=== PATIENT | male | born 1940 | race Asian ===

== ENCOUNTER 2016-06-22 17:06 | Emergency (ER) | payer OTHER ==
[~2016-06-22] VITALS: Ht 157.5 cm; Wt 56.0 kg
[~2016-06-22 17:06] MED LIST: ALLO100T PO; AMLO-218 PO; ASPI-664 PO; ATOR20TA38 PO; CHOL100062 PO; COLC0.6T6 PO; DONE5TAB32 PO; DUTA0.5C PO; GLIP-95 PO; LEVO100T87 PO; LOSA50TA6 PO; NIT4 SL; PANT20TA2 PO; TAMS-14 PO; TEMA15CA6 PO
[2016-06-22 17:13] VITALS: Ht 157.5 cm; Wt 56.0 kg
[2016-06-22] MEDS ORDERED: HYDROCODONE/APAP (5/325) TAB PO ONE (18:00)
--- NOTE | 2016-06-22 18:24 | RADRPT ---
PROCEDURE: XR Left Shoulder. CLINICAL INDICATION: Trauma. Left shoulder pain. TECHNIQUE: Two views. Frontal internal rotation and frontal external rotation. COMPARISON: No prior study is available for comparison. FINDINGS: There is no fracture. There is inferior subluxation of the glenohumeral joint. The acromioclavicul ar joint is normal. The soft tissues are normal. Articular surfaces are intact. There is no lytic or blastic lesion. There is no radiopaque foreign body. IMPRESSION: 1. Inferior subluxation of the glenohumeral joint. Correlation with MRI should be considered. 2. No fracture or dislocation. RPTAT: QQ .Misha Castro MD, Date Time Electronically viewed and signed by .Misha Castro MD, on 06/22/2016 18:24 .R/
--- NOTE | 2016-06-22 18:41 | ERD ---
ER Documentation Chief Complaint Date/Time DATE: 06/22/16 TIME: 18:41 Chief Complaint left shoulder dislocation , hapenned 3 days ago, on coumadin HPI 75-year-old male, [id number], with history of diabetes, hypertension, chronic renal insufficiency, prostate cancer, CVA, DC and coronary artery disease status post CABG in 2016 ambulatory to the ED complaining of a 3 day history of sharp and achy, nonradiating left shoulder pain exacerbated by movement. No relieving factors. 3 days ago he was using a spring-loaded pole whizzer hand when he felt acute pain in his left shoulder. No elbow or wrist pain. No weakness, numbness or paresthesias. Was seen in the clinic today where radiographs apparently revealed a dislocation and he was referred to the ED for further evaluation. Otherwise asymptomatic. Denies chest pain or palpitations. No shortness of breath or cough. No abdominal pain or back pain. No nausea vomiting. No fevers or chills. ROS All systems reviewed and are negative except as per history of present illness. Medications Home Meds Active Scripts Tramadol HCl (Tramadol HCl) 50 Mg Tablet, 50 MG PO Q6 Y for PAIN, #10 TAB Prov:JOAQUIM DALE MD 06/22/16 Hydrocodone/Acetaminophen ([place] 5-325 Tablet) 1 Each Tablet, 1 TAB PO Q6H Y for PAIN, #7 TAB Prov:JOAQUIM DALE MD 06/22/16 Reported Medications Nitroglycerin* (Nitrostat*) 0.4 Mg Tab.subl, 0.4 MG SL Q5MIN Y for CHEST PAIN, BOTTLE 05/26/15 Colchicine* (Colcrys*) 0.6 Mg Tablet, 0.6 MG PO DAILY Y for MUSCLE SPASMS, TAB 05/26/15 Temazepam* (Restoril*) 15 Mg Capsule, 15 MG PO HS Y for INSOMNIA, CAP 05/26/15 Atorvastatin Calcium* (Atorvastatin Calcium*) 20 Mg Tablet, 20 MG PO QHS, #30 TAB 05/26/15 Levothyroxine Sodium* (Levothyroxine Sodium*) 100 Mcg Tablet, 100 MCG PO BEFORE BREAKFAST, #30 TAB 05/26/15 Cholecalciferol* (Vitamin D3*) 1,000 Unit Tablet, 1000 UNIT PO DAILY, TAB 05/26/15 Pantoprazole* (Protonix*) 20 Mg Tablet.dr, 20 MG PO DAILY, TAB 05/26/15 Aspirin* (Aspirin* EC) 81 Mg Tablet.dr, 81 MG PO DAILY, TAB 05/26/15 Dutasteride* (Avodart*) 0.5 Mg Capsule, 0.5 MG PO DAILY, CAP 05/26/15 Donepezil* (Aricept*) 5 Mg Tablet, 5 MG PO DAILY, TAB 05/26/15 Glipizide* (Glipizide*) 10 Mg Tablet, 10 MG PO AC BREAKFAST DINNER, TAB 05/26/15 Tamsulosin Hcl* (Flomax*) 0.4 Mg Cap.er.24h, 0.4 MG PO DAILY, CAP 05/26/15 Allopurinol* (Allopurinol*) 100 Mg Tablet, 100 MG PO BID, TAB 05/26/15 Amlodipine Besylate* (Norvasc*) 10 Mg Tablet, 10 MG PO DAILY, TAB 05/26/15 Losartan Potassium* (Losartan Potassium*) 50 Mg Tablet, 50 MG PO DAILY, TAB 05/26/15 Allergies Allergies: Coded Allergies: No Known Allergy (Unverified , 05/26/15) PMhx/Soc Reviewed in chart. As per HPI. History of Surgery: Yes (GOITER SX) Anesthesia Reaction: No Hx Neurological Disorder: No Hx Respiratory Disorders: No Hx Cardiac Disorders: Yes (HTN, CABG-5V) Hx Psychiatric Problems: No Hx Miscellaneous Medical Probl: Yes (dm) Hx Alcohol Use: Yes (socially) Hx Substance Use: No Hx Tobacco Use: Yes (QUIT 30 YEARS) Smoking Status: Former smoker FmHx Not relevant to presenting complaint Physical Exam Vitals Vital Signs Date Time Temp Pulse Resp B/P Pulse Ox O2 Delivery O2 Flow Rate FiO2 06/22/16 21:10 69 17 150/79 100 Room Air 06/22/16 18:36 85 17 155/88 100 Room Air 06/22/16 17:13 98.1 81 20 175/81 99 Physical Exam Const: Alert, mild distress due to pain. Head: Atraumatic Eyes: Normal Conjunctiva ENT: Normal External Ears, Nose and Mouth. Neck: Full range of motion. Nontender Resp: Clear to auscultation bilaterally Cardio: Regular rate and rhythm, no murmurs. Status post median sternotomy. Abd: Soft, non tender, non distended. Normal bowel sounds Skin: No petechiae or rashes Back: No midline or flank tenderness Ext: Left upper extremity: Swelling and tenderness of the glenohumeral area but no gross deformity. Range of motion is severely limited due to pain. No elbow or wrist swelling or tenderness. Normal sensation over the axillary nerve distribution. Distal neurovascular intact. Neur: Awake and alert Psych: Normal Mood and Affect Results 24 hrs Current Medications Medications (Trade) Dose Ordered Sig/Сергей Route PRN Reason Start Time Stop Time Status Last Admin Dose Admin Acetaminophen/ Hydrocodone Bitart ([place] (5/325)) 1 tab ONCE ONCE PO 06/22/16 18:00 06/22/16 18:01 DC 06/22/16 17:44 Morphine Sulfate (morphine) 4 mg ONCE STAT IV 06/22/16 18:44 06/22/16 18:46 DC 06/22/16 18:50 Ondansetron HCl (Zofran Inj) 4 mg ONCE STAT IV 06/22/16 18:44 06/22/16 18:46 DC 06/22/16 18:50 PROCEDURE: XR Left Shoulder. CLINICAL INDICATION: Trauma. Left shoulder pain. TECHNIQUE: Two views. Frontal internal rotation and frontal external rotation. COMPARISON: No prior study is available for comparison. FINDINGS: There is no fracture. There is inferior subluxation of the glenohumeral joint. The acromioclavicular joint is normal. The soft tissues are normal. Articular surfaces are intact. There is no lytic or blastic lesion. There is no radiopaque foreign body. IMPRESSION: 1. Inferior subluxation of the glenohumeral joint. Correlation with MRI should be considered. 2. No fracture or dislocation. RPTAT: QQ .Misha Castro MD, MD Date Time Electronically viewed and signed by .Misha Castro MD, on 06/22/2016 18:24 .R/ PROCEDURE: CT shoulder left CLINICAL INDICATION: Left inferior subluxation dislocation. TECHNIQUE: A CT of the left shoulder was performed without intravenous contrast. Coronal and sagittal reformats were generated. CTDIvol: 15.64 mGy. DLP: 361.54 mGy-cm. COMPARISON: Left shoulder x-rays dated 06/22/2016 FINDINGS: The left humeral head is subluxed inferiorly with widening of the superior glenohumeral joint space. There is mild degenerative arthrosis of the glenohumeral joint. Additional mild rotator cuff related degenerative changes are noted along the humeral head. No fracture is identified. Bone mineralization is normal and there is no suspicious osseous lesion. The visualized left lung is clear. IMPRESSION: 1. Inferior subluxation of the left humeral head with widening of the superior glenohumeral joint space, nonspecific. This could be further evaluated with MRI if clinically warranted. 2. No fracture. 3. Mild degenerative changes. RPTAT: HTAR .Deep Arvizu MD, MD Date Time Electronically viewed and signed by .Deep Arvizu MD, MD on 06/22/2016 19:51 .R/ Procedures/MDM DOCUMENTS REVIEWED: ED nurse prior ED, prior records [employer]ISION [employer]KIN-year-old male, [id number], with history of diabetes, hypertension, chronic renal insufficiency, prostate cancer, CVA, DC and coronary artery disease status post CABG in 2016 ambulatory to the ED complaining of a 3 day history of sharp and achy, nonradiating left shoulder pain. Radiographs and CT scan reveal subluxation without significant dislocation. Patient will need an MRI to further evaluate this process. It is ongoing for 3 days there is no indication for emergent intervention. Arm immobilized. He will be referred to his primary care physician tomorrow for urgent MRI and orthopedic referral. Counseled patient regarding diagnostic workup, diagnosis and need for followup. Understands to return to ED if symptoms recur, worsen or any other concerns. Departure Diagnosis: Primary Impression: Left shoulder pain Chronicity: acute Qualified Code: M25.512 - Acute pain of left shoulder Additional Impressions: Subluxation of left shoulder joint Encounter type: initial encounter Qualified Code: S43.002A - Subluxation of left shoulder joint, initial encounter History of coronary artery bypass graft Diabetes mellitus type 2 in nonobese Hypertension Hypertension type: essential hypertension Qualified Code: I10 - Essential hypertension Condition: Stable JOAQUIM DALE MD Jun 22, 2016 18:41
[2016-06-22] MEDS ORDERED: morphine 4 MG/ML VIAL IV STA (18:44)
[2016-06-22] MEDS ORDERED: ONDANSETRON 4 MG INJ IV STA (18:44)
--- NOTE | 2016-06-22 19:52 | RADRPT ---
PROCEDURE: CT shoulder left CLINICAL INDICATION: Left inferior subluxation dislocation. TECHNIQUE: A CT of the left shoulder was performed without intravenous contrast. Coronal and sagit mirza reformats were generated. CTDIvol: 15.64 mGy. DLP: 361.54 mGy-cm. COMPARISON: Left shoulder x-rays dated 06/22/2016 FINDINGS: The left humeral head is subluxed inferiorly with widening of the superior glenohumeral joint space. There is mild degenerative arthrosis of the glenohumeral joint. Additional mild rotator cuff relate d degenerative changes are noted along the humeral head. No fracture is identified. Bone mineraliza tion is normal and there is no suspicious osseous lesion. The visualized left lung is clear. IMPRESSION: 1. Inferior subluxation of the left humeral head with widening of the superior glenohumeral joint sp anthony, nonspecific. This could be further evaluated with MRI if clinically warranted. 2. No fracture. 3. Mild degenerative changes. RPTAT: HTAR .Deep Arvizu MD, Date Time Electronically viewed and signed by .Deep Arvizu MD, on 06/22/2016 19:51 .R/
[2016-06-22] MEDS ORDERED: TRAM50TA2 PO (20:51)
[2016-06-22] MEDS ORDERED: HYDR-906 PO (20:51)
[2016-06-22 21:10] VITALS: BP 150/79; PULSE 69; RESP 17
== END 2016-06-22 21:11 | disposition home or self-care (01) ==
LOC: E/R 17:06
DX: S43.032A Inferior subluxation of left humerus, initial encounter (principal); I10 Essential (primary) hypertension; E11.9 Type 2 diabetes mellitus without complications; I25.10 Atherosclerotic heart disease of native coronary artery without angina pectoris; X50.9XXA Other and unspecified overexertion or strenuous movements or postures, initial encounter; Y92.89 Other specified places as the place of occurrence of the external cause; Z85.46 Personal history of malignant neoplasm of prostate; Z87.891 Personal history of nicotine dependence; Z95.1 Presence of aortocoronary bypass graft; Z79.82 Long term (current) use of aspirin; Z79.84 Long term (current) use of oral hypoglycemic drugs
CPT/HCPCS: 73030; 73200; J2270; J2405; 96374; 96375